=== PATIENT | male | born 1995 | race Hispanic/Latino ===

== ENCOUNTER 2024-05-30 11:44 | Emergency (ER) | payer OTHER ==
[~2024-05-30] VITALS: Ht 177.8 cm; Wt 85.6 kg
[2024-05-30] MEDS: BENZONATATE 100MG CAPSULE PO ONE (13:02)
[2024-05-30 14:28] VITALS: BP 137/73; TEMP 102.1; O2SAT 98
[2024-05-30] MEDS: ACETAMINOPHEN 500 MG TAB PO ONE (14:30)
[2024-05-30] MEDS ORDERED: AZIT-12 PO (14:31)
[2024-05-30] MEDS ORDERED: BENZ200C70 PO ×2 (14:31→15:10)
== END 2024-05-30 14:37 | disposition home or self-care (01) ==
LOC: M ED 11:44
DX: R05.9 Cough, unspecified (principal); R50.9 Fever, unspecified; Z88.2 Allergy status to sulfonamides; Z79.2 Long term (current) use of antibiotics; Z79.899 Other long term (current) drug therapy